=== PATIENT | female | born 1935 | race Caucasian/White ===

== ENCOUNTER 2023-09-02 09:49 | Emergency (ER) | payer OTHER, MEDICARE ==
[~2023-09-02] VITALS: Ht 170.2 cm; Wt 76.0 kg
[2023-09-02 10:08] VITALS: TEMP 98.6
[2023-09-02 11:43] VITALS: BP 143/57; PULSE 65; RESP 12; O2SAT 95
== END 2023-09-02 11:45 | disposition home or self-care (01) ==
LOC: ER 09:49
DX: S09.8XXA Other specified injuries of head, initial encounter (principal); I48.91 Unspecified atrial fibrillation; Z88.0 Allergy status to penicillin; Z95.0 Presence of cardiac pacemaker; V98.8XXA Other specified transport accidents, initial encounter; Y93.89 Activity, other specified; Y92.89 Other specified places as the place of occurrence of the external cause; Y99.8 Other external cause status
CPT/HCPCS: 70450; 72125; 93005; 99284

== ENCOUNTER 2023-09-08 11:57 | Outpatient (CLI) | payer MEDICARE | END 2023-09-08 23:59 | disposition home or self-care (01) | LOC: VAS 11:57 | PROVIDERS: ATTEND Internal Medicine | DX: I65.23 Occlusion and stenosis of bilateral carotid arteries (principal); Z87.820 Personal history of traumatic brain injury | CPT/HCPCS: 93880 ==

== ENCOUNTER 2024-11-03 17:34 | Outpatient (CLI) | payer MEDICARE ==
[~2024-11-03 17:34] MED LIST: ATOR20TA66 PO; CARV6.2553 PO; MECO10005 PO; PANT40TA54 PO; POTA-366 PO; SPIR25TA5 PO; WARF4TAB69 PO
[2024-11-03 17:49] LABS: INR 2.0 INR
== END 2024-11-03 23:59 | disposition home or self-care (01) ==
LOC: LAB SPEC 17:34
PROVIDERS: ATTEND Nurse Practitioner Family
DX: R79.1 Abnormal coagulation profile (principal)
CPT/HCPCS: 36415; 85610